=== PATIENT | male | born 1935 | race Asian ===

== ENCOUNTER 2016-08-14 12:08 | Emergency (ER) | payer MEDICARE, OTHER ==
[~2016-08-14] VITALS: Ht 170.2 cm; Wt 70.5 kg
[2016-08-14 12:26] VITALS: Ht 170.2 cm; Wt 70.5 kg
[2016-08-14] MEDS ORDERED: DIATR MEGLU/DIATRIZOATE SODIUM 120 ML BTL ONE (13:01)
--- NOTE | 2016-08-14 13:58 | RADRPT ---
PROCEDURE: XR Abdomen. CLINICAL INDICATION: Thus as G-tube placement. TECHNIQUE: AP abdomen x-ray. COMPARISON: No. FINDINGS: The heart is enlarged. There are degenerative osteophytes in the lumbar spine. There is a right hi p arthroplasty. A gastrostomy tube is positioned in the lower fundus of the stomach. Contrast is no maddy in the stomach and duodenum. A small amount of contrast is noted in the proximal jejunum. IMPRESSION: 1. A gastrostomy tube is positioned in the distal fundus/antrum of the stomach. No contrast extrav asation is noted. 2. There is a partially visualized right hip arthroplasty. 3. 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 4. Cardiomegaly. Physician Red Date Time Electronically viewed and signed by Jc Lerma Physician on 08/14/2016 13:58 JM/
[2016-08-14] MEDS ORDERED: DONE5TAB46 PO (14:31)
--- NOTE | 2016-08-14 14:35 | ERD ---
ER Documentation Chief Complaint Date/Time DATE: 08/14/16 TIME: 14:34 Chief Complaint gtube malfunction starting this morning per family HPI Patient is an 80-year-old male who presents for a G-tube malfunction. The noticed that his G-tube was not working today when she tried to give him tube feedings. He cannot feed by mouth. He has had this G-tube in for over 2 years per the . His primary doctor is Dr. Brock and his GI doctor is Dr. Kim. ROS All systems reviewed and are negative except as per history of present illness. Medications Home Meds Reported Medications Donepezil* (Aricept*) 5 Mg Tablet, 5 MG PO DAILY, TAB 08/14/16 Allergies Allergies: Coded Allergies: No Allergy Information Available (Verified Allergy, Unknown, 07/29/13) PMhx/Soc History of Surgery: No (PEG PLACEMENT) Hx Neurological Disorder: No Hx Respiratory Disorders: No Hx Cardiac Disorders: Yes (HTN CONTROLLED) Hx Psychiatric Problems: No Hx Miscellaneous Medical Probl: No Hx Alcohol Use: Yes (LAST WAS 1996) Hx Substance Use: No Hx Tobacco Use: No Smoking Status: Never smoker FmHx Family History: No diabetes Physical Exam Vitals Vital Signs Date Time Temp Pulse Resp B/P Pulse Ox O2 Delivery O2 Flow Rate FiO2 08/14/16 12:26 98.8 85 18 142/78 97 Physical Exam Const: No acute distress Head: Atraumatic Eyes: Normal Conjunctiva ENT: Normal External Ears, Nose and Mouth. Neck: Full range of motion..~ No meningismus. Resp: Clear to auscultation bilaterally Cardio: Regular rate and rhythm, no murmurs Abd: G-tube in the left upper quadrant appears old Skin: No petechiae or rashes Back: No midline or flank tenderness Ext: No cyanosis, or edema Neur: Awake Results 24 hrs Current Medications Medications (Trade) Dose Ordered Sig/Grisel Route PRN Reason Start Time Stop Time Status Last Admin Dose Admin Diatrizoate Meglum/ Diatrizoate Sod (Gastrografin 66-10 Solution) 120 ml STK-MED ONCE .ROUTE 08/14/16 13:01 08/14/16 13:02 DC Procedures/MDM G-tube Insertion by me: Sterile technique, local prep and lubrication, time out performed. Location: Epigastrum Device: 20 [place] G-tube Technique: Heather pressure with twisting motion. Balloon inflation Results: Gastric contents expressed. Compl: none X-ray Abdomen 1V Interpreted by me: Free Air: None Bowel Gas: Nonspecific Contrast: Intraluminal Patient had a successful G-tube replacement and will be discharged back home. He can return for any worsening symptoms. Departure Diagnosis: Primary Impression: Gastrostomy tube dysfunction Condition: Fair Patient Instructions: Caring for Your Gastrostomy Tube (G-Tube) Additional Instructions: Call your primary care doctor TOMORROW for an appointment during the next 1 WEEK.Tell the medical assistant secretary that you were referred from this facility.See the doctor sooner or return here if your condition worsens before your appointment time. CARLOS BERRY MD Aug 14, 2016 14:35
== END 2016-08-14 13:30 | disposition home or self-care (01) ==
LOC: E/R 12:08
DX: K94.23 Gastrostomy malfunction (principal); I10 Essential (primary) hypertension
CPT/HCPCS: 74000

== ENCOUNTER 2017-11-13 21:29 | Observation (INO) | END 2017-11-15 18:55 | disposition home health service (06) ==